=== PATIENT | female | born 1975 | race Caucasian/White ===

== ENCOUNTER → 2020-08-22 | Outpatient (CLI) | payer OTHER ==
[2020-08-22 21:08] LABS: DHEA SO4 185.3 ug/dL (57.3-279.2); ESTRADIOL LEVEL <5.0 pg/mL (.); FSH 51.4 mIU/mL (.); LUTEINIZING HORMONE 26.2 mIU/mL (.); PROLACTIN 14.3 ng/mL (4.8-23.3)
== END ==
LOC: LAB 08:09
PROVIDERS: ATTEND Obstetrics & Gynecology
DX: N92.6 Irregular menstruation, unspecified (principal)
CPT/HCPCS: 36415; 82627; 82670; 83001; 83002; 84146; 84402; 84403; 84443